=== PATIENT | male | born 1980 | race Two or more races ===

== ENCOUNTER 2019-03-13 19:11 | Emergency (ER) | payer OTHER ==
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
[2019-03-13] MEDS ORDERED: KETOROLAC TROMETHAMINE 60 MG/2 ML SDV IM ONE (23:32)
[2019-03-13] MEDS ORDERED: METHOCARBAMOL 750 MG TABLET PO ONE (23:32)
[2019-03-13] MEDS ORDERED: LIDOCAINE 5% (700 MG) TRANSDERMAL ADH..PATCH TP ONE (23:32)
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
[2019-03-14 01:04] VITALS: BP 140/77
== END 2019-03-14 00:15 | disposition home or self-care (01) ==
LOC: ER 19:11
DX: M54.41 Lumbago with sciatica, right side (principal); V49.40XA Driver injured in collision with unspecified motor vehicles in traffic accident, initial encounter; V43.52XA Car driver injured in collision with other type car in traffic accident, initial encounter
CPT/HCPCS: 99283; 96372; J1885; J3490